=== PATIENT | female | born 1950 | race Caucasian/White ===

== ENCOUNTER 2022-04-13 19:11 | Inpatient (IN) | payer MEDICARE ==
[~2022-04-13] VITALS: Ht 157.5 cm; Wt 51.5 kg
[2022-04-13 19:57] LABS: BASO # 0.1 x10^3/uL (0.0-0.2); BASO % 1 % (0-3); EOS # 0.1 x10^3/uL (0.0-0.7); EOS % 1 % (0-3); HEMATOCRIT 35.8 % (36.0-47.0); HEMOGLOBIN 12.6 g/dL (12.0-15.5); LYMPH % 19 % (24-48); MEAN CORPUSCULAR HEMOGLOBIN 33 pg (25-35); MEAN CORPUSCULAR HGB CONC 35 g/dL (31-37); MEAN CORPUSCULAR VOLUME 95 fL (79-100); MONO # 0.7 x10^3/uL (0.0-1.1); MONO % 14 % (0-9); NEUT # 3.4 x10^3/uL (1.8-7.7); NEUT % 64 % (31-73); PLATELET COUNT 235 x10^3/uL (140-400); RED BLOOD COUNT 3.77 x10^6/uL (3.50-5.40); RED CELL DISTRIBUTION WIDTH 11.9 % (11.5-14.5); WHITE BLOOD COUNT 5.3 x10^3/uL (4.0-11.0)
[2022-04-13 20:05] LABS: AMPHETAMINE/METHAMPHETAMINE NEG (NEG); BARBITURATES NEG (NEG); BENZODIAZEPINES NEG (NEG); CANNABINOIDS NEG (NEG); COCAINE NEG (NEG); METHADONE NEG (NEG); OPIATES NEG (NEG); PHENCYCLIDINE NEG (NEG)
[2022-04-13 20:06] LABS: PROTHROMBIN TIME PATIENT 12.9 SEC (11.7-14.0)
[2022-04-13 20:07] LABS: BACTERIA,URINE 0 /HPF (0-FEW); RBC,URINE 0 /HPF (0-2); WBC,URINE OCC /HPF (0-4)
[2022-04-13 20:16] LABS: CREATININE 0.6 mg/dL (0.6-1.0); GFR 98.8; POTASSIUM 3.6 mmol/L (3.5-5.1)
[2022-04-13 20:17] LABS: INFLUENZA A PATIENT NEGATIVE (NEGATIVE); INFLUENZA B PATIENT NEGATIVE (NEGATIVE)
[2022-04-13 20:22] LABS: MAGNESIUM 1.9 mg/dL (1.8-2.4); TOTAL BILIRUBIN 0.2 mg/dL (0.2-1.0); TOTAL PROTEIN 5.9 g/dL (6.4-8.2)
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
[2022-04-13] MEDS ORDERED: NICOTINE 21MG PATCH. TD STA (21:17)
[2022-04-13] MEDS ORDERED: MULTIVIT INFUSN,ADULT 4,VIT K 10 ML, THIAMINE INJ 100 MG, FOLIC ACID INJ 1 MG in IV NOR... IV ONE (21:39)
[2022-04-13] MEDS ORDERED: ONDANSETRON PF 4 MG/2 ML VIAL. IVP PRN (21:43)
[2022-04-13] MEDS ORDERED: IV NORMAL SALINE 1000ML BAG 1,000 ML IV ONE ×2 (21:43→21:44)
[2022-04-13] MEDS ORDERED: MORPHINE SULFATE 2 MG/ML INJ. IVP PRN (21:44)
[2022-04-13] MEDS ORDERED: ACETAMINOPHEN 325 MG TABLET. PO PRN (21:44)
--- NOTE | 2022-04-13 21:45 | RAD ---
CT HEAD INDICATION: Reason: weakness / Spl. Instructions: / History: COMPARISON: None Available. Exposure: One or more of the following individualized dose reduction techniques were utilized for thi s examination: 1. Automated exposure control 2. Adjustment of the mA and/or kV according to patient size 3. Use of iterative reconstruction technique TECHNIQUE: 5 mm contiguous axial images were obtained from the skull base to the vertex in both bone and soft tissue algorithm. FINDINGS: No abnormal attenuation within the brain parenchyma. No evidence of acute intracranial hemorrhage. No extra-axial fluid collections. No mass effect or midline shift. Ventricular size is appropriate. Basal cisterns are patent. No fractures identified.[place]-white differentiation is preserved.Globes and orbits are within normal l imits. Paranasal sinuses and mastoid air cells are clear. IMPRESSION: No acute intracranial findings. Electronically signed by: Evens Elder MD (04/13/2022 9:43 PM) [id number]
--- NOTE | 2022-04-13 23:32 | RAD ---
XR CHEST 1V 04/13/2022 8:10 PM INDICATION: Shortness of air COMPARISON: None available TECHNIQUE: Portable frontal view of the chest is provided. FINDINGS: The cardiomediastinal silhouette is within normal limits. Patchy opacity identified within the lingul a. There are no significant pleural effusions. There is no pulmonary vascular congestion. No pneumothora x. No suspicious osseous abnormality. IMPRESSION: Patchy opacity within the lingula which may represent pulmonary infiltrate in appropriate setting. Re commend short-term follow-up two-view chest radiograph to ensure resolution. Electronically signed by: Giovana Raman MD (04/13/2022 11:30 PM) KEE
[2022-04-13 23:33] VITALS: BP 146/60
[2022-04-14 03:31] VITALS: BP 149/69
[2022-04-14 03:32] LABS: ALBUMIN 2.9 g/dL (3.4-5.0); CREATININE 0.5 mg/dL (0.6-1.0); TOTAL BILIRUBIN 0.2 mg/dL (0.2-1.0); TOTAL PROTEIN 5.7 g/dL (6.4-8.2)
[2022-04-14 04:31] LABS: BASO % 1 % (0-3); EOS # 0.1 x10^3/uL (0.0-0.7); EOS % 1 % (0-3); HEMATOCRIT 37.7 % (36.0-47.0); LYMPH # 0.9 x10^3/uL (1.0-4.8); LYMPH % 20 % (24-48); MEAN CORPUSCULAR HEMOGLOBIN 33 pg (25-35); MEAN CORPUSCULAR HGB CONC 35 g/dL (31-37); MEAN CORPUSCULAR VOLUME 96 fL (79-100); MONO # 0.7 x10^3/uL (0.0-1.1); MONO % 14 % (0-9); NEUT # 3.1 x10^3/uL (1.8-7.7); NEUT % 64 % (31-73); PLATELET COUNT 239 x10^3/uL (140-400); RED BLOOD COUNT 3.93 x10^6/uL (3.50-5.40); RED CELL DISTRIBUTION WIDTH 11.9 % (11.5-14.5); WHITE BLOOD COUNT 4.8 x10^3/uL (4.0-11.0)
--- NOTE | 2022-04-14 06:36 | EKG ---
[facility] [address] [place] [id number] Test Date: 2022-04-13 Test Time: 19:40:04 Pat Name: ÁLVARO MOELLER Department: Room: 536 1 Gender: F Pricer: MITCHELL : 1950 Requested By: JOSE J GREENE Order Number: [id number] Reading MD: Blue Miramontes Measurements Intervals Swiss Rate: 70 P: 73 WI: 186 QRS: -29 QRSD: 134 T: 110 QT: 432 QTc: 470 Interpretive Statements SINUS RHYTHM LEFTWARD AXIS LEFT BUNDLE BRANCH BLOCK Electronically Signed On 04-15-2022 10:06:27 CDT by Blue Miramontes
[2022-04-14 07:13] VITALS: BP 166/61
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
[2022-04-14] MEDS ORDERED: guaiFENesin DM 200MG/20MG 10 ML SYRUP PO PRN (07:30)
[2022-04-14] MEDS ORDERED: ALBUTEROL SULFATE 2.5 MG/3 ML NEBU. NEB PRN (07:30)
[2022-04-14] MEDS: IPRATRPIUM/ALBUTEROL 0.5/2.5MG 3 ML NEBU. NEB SCH ×4 (08:00→20:47)
[2022-04-14 11:00] VITALS: BP 148/60
[2022-04-14] MEDS: BUDESONIDE 0.5 MG/2 ML NEBU. NEB SCH ×2 (12:00→20:47)
[2022-04-14] MEDS ORDERED: cloNIDine HCL 0.1 MG TABLET PO PRN (12:45)
[2022-04-14] MEDS: GABAPENTIN 300 MG CAPSULE. PO SCH ×2 (14:05→21:10)
[2022-04-14] MEDS: MEMANTINE 5 MG TABLET. PO SCH ×2 (14:06→21:19)
[2022-04-14] MEDS: FAMOTIDINE 20 MG TABLET. PO SCH (14:06)
[2022-04-14 14:55] VITALS: BP 167/67
[2022-04-14 19:00] VITALS: BP 141/55
[2022-04-14 23:00] VITALS: BP 150/57
[2022-04-15 03:00] VITALS: BP 133/58
[2022-04-15 07:00] VITALS: BP 153/74
[2022-04-15] MEDS: IPRATRPIUM/ALBUTEROL 0.5/2.5MG 3 ML NEBU. NEB SCH ×3 (07:13→15:35)
[2022-04-15] MEDS: BUDESONIDE 0.5 MG/2 ML NEBU. NEB SCH (07:13)
--- NOTE | 2022-04-15 07:15 | PDOC ---
[employer] PROGRESS NOTE Date of Service DOS: DATE: 04/15/22 TIME: 07:10 Chief Complaint Chief Complaint Dyspnea -likely mild COPD exacerbation does not have a formal diagnosis of COPD that family knows of but was hospitalized 10 times only to the [facility] she recently moved to [place]. Hyponatremia -nutritional malnourished. She is a "tea and toast" individual Alcohol use disorder -with history of hospitalization for withdrawal seizures. Placed on CIWA protocol current smoker using 1 to 2 packs of cigarettes -patient denied smoking to me counseled on think about why she wants to quit. Family notes she smokes 2 packs/day Mild cognitive impairment - will start low dose memantine Severe protein calorie malnutrition -essentially only drinks Diet Coke protein drinks and alcohol. dietitian counseling Gram positive blood cultures - doxy and rocephin FEN - mechanical soft PPX - lovenox FULL CODE Dispo - inpatient History of Present Illness History of Present Illness Ms Sanford is a 71 year old female w/ PMHx alcohol use disorder current smoker using 1 to 2 packs of cigarettes per day presenting to the ED via EMS on 04/13/22 complaining of progressive weakness and shortness of breath. She noted she drinks 6 beers and was unable to walk very well unable to stand unaided in the ED. Denies any chest pain, denies any abdominal pain, denies any nausea or vomiting. Family supplements history notes that she and her brother were evicted from their homes in the [place] [facility] recently and had to move up to [place]. Her daughter is her financial and medical power of senior trial attorney and she notes that she would like to defer to her daughter for most things though she is oriented to location person and date date month and year WBC 5.3, Hb 12.6, platelets 235, INR 1, PTT 27, NA 126, K3.6, BUN 5, CR 0.6, glucose 76, calcium 8, magnesium 1.9, bilirubin 0.2, AST 17, ALT 23, alkaline phosphatase 73, albumin 3, lipase 153, NT proBNP 44, troponin 11, procalcitonin less than 0.1, lactic acid 1.6, TSH 2.086, urine drug screen positive for ethyl alcohol ethanol level 33 mg/Gordon at 1944, urinalysis bland, rapid COVID-19 and rapid influenza negative. EKG sinus rate of 70 bpm leftward axis QRS wide at 134, QTc 470, no TWI or ST segment elevation. Chest radiograph with patchy opacity left lingula Noncontrast CT head with no acute abnormality. 04/15: Required IV Ativan overnight for elevated CIWA score. Blood cultures resulted positive with gram-positive cocci in clusters this morning we will start empiric Rocephin and doxycycline until antibiotic therapy can be tailored toward results. Was able to work with therapy recommended home health services. Vitals/I&O Vitals/I&O: Vital Signs Date Time Temp Pulse Resp B/P (MAP) Pulse Ox O2 Delivery O2 Flow Rate FiO2 04/15/22 03:00 97.7 81 16 133/58 (83) 95 97.7 04/14/22 20:50 Room Air I & O 04/14/22 04/14/22 04/15/22 15:00 23:00 07:00 Intake Total 480 ml 240 ml Output Total 1400 ml Balance 480 ml 240 ml -1400 ml Physical Exam General: Alert, Oriented X3, Cooperative, mild distress Abdomen: Normal bowel sounds, Soft, No tenderness, No hepatosplenomegaly, No masses Extremities: No clubbing, No cyanosis, No edema, Normal pulses, No tenderness/swelling Skin: No rashes, No breakdown, No significant lesion Assessment and Plan Assessmemt and Plan Problems Medical Problems: (1) Alcoholism Status: Acute (2) Generalized weakness Status: Acute (3) Hyponatremia Status: Acute (4) Shortness of breath Status: Acute (5) Smoking addiction Status: Acute Comment Review of Relevant I have reviewed the following items sara (where applicable) has been applied. Medications: Current Medications Medications (Trade) Dose Ordered Sig/Florencia Route PRN Reason Start Time Stop Time Status Last Admin Dose Admin Albuterol/ Ipratropium (Duoneb) 3 ml RTQID NEB 04/14/22 08:00 04/14/22 20:47 Budesonide (Pulmicort) 0.5 mg RTBID NEB 04/14/22 08:00 04/14/22 20:47 Guaifenesin (Robitussin Dm) 10 ml PRN Q6HRS PRN PO COUGH 04/14/22 07:30 04/14/22 21:09 Olanzapine (ZyPREXA ZYDIS) 5 mg PRN BID PRN PO ANXIETY / AGITATION 04/14/22 07:30 04/14/22 21:10 Gabapentin (Neurontin) 300 mg TID PO 04/14/22 14:00 04/14/22 21:10 Lorazepam (Ativan Inj) 1 mg PRN Q1HR PRN IV For CIWA 8-14 04/14/22 12:45 04/14/22 21:09 Famotidine (Pepcid) 20 mg DAILY PO 04/14/22 13:00 04/14/22 14:06 Memantine (Namenda) 5 mg BID PO 04/14/22 13:00 04/14/22 21:19 Justifications for Admission Other Justification JAIRO LAKE MD April 15, 2022 07:15
[2022-04-15] MEDS ORDERED: cefTRIAXone IV Push 1 GM VIAL. IVP SCH (09:00)
[2022-04-15] MEDS ORDERED: FOLIC ACID 1 MG TABLET. PO SCH (09:00)
[2022-04-15] MEDS ORDERED: DOXYCYCLINE HYCLATE 100 MG in IV DEXTROSE 5% 100ML 100 ML IV SCH (09:00)
[2022-04-15] MEDS ORDERED: MULTIVITAMIN with MINERAL TABLET. PO SCH (09:00)
[2022-04-15] MEDS ORDERED: THIAMINE 100 MG TABLET. PO SCH (09:00)
[2022-04-15 09:05] LABS: CALCIUM 8.4 mg/dL (8.5-10.1); CREATININE 0.5 mg/dL (0.6-1.0); POTASSIUM 3.6 mmol/L (3.5-5.1)
--- NOTE | 2022-04-15 09:41 | PDOC ---
PULMONARY PROGRESS NOTES DATE: 04/15/22 TIME: 09:41 Vitals Vital Signs Date Time Temp Pulse Resp B/P (MAP) Pulse Ox O2 Delivery O2 Flow Rate FiO2 04/15/22 07:14 96 Room Air 04/15/22 07:00 98.2 67 20 153/74 (100) 98.2 Labs Laboratory Tests Test 04/13/22 19:40 04/13/22 19:44 04/14/22 03:00 04/15/22 06:29 Urine Collection Type Unknown Urine Color (Auto) Colorless Urine Turbidity Clear Urine pH (Auto) 5.5 (<5.0-8.0) Urine Specific [place] 1.002 (1.000-1.030) Urine Protein (Auto) Negative mg/dL (Negative) Urine Glucose (Auto)(UA) Negative mg/dL (Negative) Urine Ketones (Auto) Negative mg/dL (Negative) Urine Blood (Auto) Trace (Negative) Urine Nitrite Negative (Negative) Urine Bilirubin (Auto) Negative (Negative) Urine Urobilinogen (Auto) Normal mg/dL (Normal) Urine Leukocyte Esterase (Auto) Negative (Negative) Urine RBC 0 /HPF (0-2) Urine WBC Occ /HPF (0-4) Urine Squamous Epithelial Cells Few /LPF Urine Bacteria 0 /HPF (0-FEW) Urine Opiates Screen Neg (NEG) Urine Methadone Screen Neg (NEG) Urine Barbiturates Neg (NEG) Urine Phencyclidine Screen Neg (NEG) Urine Amphetamine/Methamphetamine Neg (NEG) Urine Benzodiazepines Screen Neg (NEG) Urine Cocaine Screen Neg (NEG) Urine Cannabinoids Screen Neg (NEG) Urine Ethyl Alcohol Pos (NEG) Influenza Type A Antigen Negative (NEGATIVE) Influenza Type B Antigen Negative (NEGATIVE) SARS-CoV-2 Antigen (Rapid) Negative (NEGATIVE) White Blood Count 5.3 x10^3/uL (4.0-11.0) 4.8 x10^3/uL (4.0-11.0) Red Blood Count 3.77 x10^6/uL (3.50-5.40) 3.93 x10^6/uL (3.50-5.40) Hemoglobin 12.6 g/dL (12.0-15.5) 13.0 g/dL (12.0-15.5) Hematocrit 35.8 % (36.0-47.0) 37.7 % (36.0-47.0) Mean Corpuscular Volume 95 fL (79-100) 96 fL (79-100) Mean Corpuscular Hemoglobin 33 pg (25-35) 33 pg (25-35) Mean Corpuscular Hemoglobin Concent 35 g/dL (31-37) 35 g/dL (31-37) Red Cell Distribution Width 11.9 % (11.5-14.5) 11.9 % (11.5-14.5) Platelet Count 235 x10^3/uL (140-400) 239 x10^3/uL (140-400) Neutrophils (%) (Auto) 64 % (31-73) 64 % (31-73) Lymphocytes (%) (Auto) 19 % (24-48) 20 % (24-48) Monocytes (%) (Auto) 14 % (0-9) 14 % (0-9) Eosinophils (%) (Auto) 1 % (0-3) 1 % (0-3) Basophils (%) (Auto) 1 % (0-3) 1 % (0-3) Neutrophils # (Auto) 3.4 x10^3/uL (1.8-7.7) 3.1 x10^3/uL (1.8-7.7) Lymphocytes # (Auto) 1.0 x10^3/uL (1.0-4.8) 0.9 x10^3/uL (1.0-4.8) Monocytes # (Auto) 0.7 x10^3/uL (0.0-1.1) 0.7 x10^3/uL (0.0-1.1) Eosinophils # (Auto) 0.1 x10^3/uL (0.0-0.7) 0.1 x10^3/uL (0.0-0.7) Basophils # (Auto) 0.1 x10^3/uL (0.0-0.2) 0.0 x10^3/uL (0.0-0.2) Prothrombin Time 12.9 SEC (11.7-14.0) Prothromb Time International Ratio 1.0 (0.8-1.1) Activated Partial Thromboplast Time 27 SEC (24-38) Sodium Level 126 mmol/L (136-145) 136 mmol/L (136-145) 140 mmol/L (136-145) Potassium Level 3.6 mmol/L (3.5-5.1) 4.0 mmol/L (3.5-5.1) 3.6 mmol/L (3.5-5.1) Chloride Level 92 mmol/L (98-107) 103 mmol/L (98-107) 105 mmol/L (98-107) Carbon Dioxide Level 28 mmol/L (21-32) 27 mmol/L (21-32) 27 mmol/L (21-32) Anion Gap 6 (6-14) 6 (6-14) 8 (6-14) Blood Urea Nitrogen 5 mg/dL (7-20) 4 mg/dL (7-20) 7 mg/dL (7-20) Creatinine 0.6 mg/dL (0.6-1.0) 0.5 mg/dL (0.6-1.0) 0.5 mg/dL (0.6-1.0) Estimated GFR (Cockcroft-Gault) 98.8 122.0 122.0 BUN/Creatinine Ratio 8 (6-20) 8 (6-20) Glucose Level 76 mg/dL (70-99) 85 mg/dL (70-99) 88 mg/dL (70-99) Lactic Acid Level 1.6 mmol/L (0.4-2.0) Calcium Level 8.0 mg/dL (8.5-10.1) 8.0 mg/dL (8.5-10.1) 8.4 mg/dL (8.5-10.1) Magnesium Level 1.9 mg/dL (1.8-2.4) Total Bilirubin 0.2 mg/dL (0.2-1.0) 0.2 mg/dL (0.2-1.0) Aspartate Amino Transf (AST/SGOT) 17 U/L (15-37) 9 U/L (15-37) Alanine Aminotransferase (ALT/SGPT) 23 U/L (14-59) 19 U/L (14-59) Alkaline Phosphatase 73 U/L (46-116) 70 U/L (46-116) Troponin I High Sensitivity 11 ng/L (4-50) 12 ng/L (4-50) [id number]-H-Type Natriuretic Peptide 484 pg/mL (0-124) Total Protein 5.9 g/dL (6.4-8.2) 5.7 g/dL (6.4-8.2) Albumin 3.0 g/dL (3.4-5.0) 2.9 g/dL (3.4-5.0) Albumin/Globulin Ratio 1.0 (1.0-1.7) 1.0 (1.0-1.7) Lipase 153 U/L (73-393) Procalcitonin < 0.10 ng/mL (0.00-0.10) Thyroid Stimulating Hormone (TSH) 2.086 uIU/mL (0.358-3.74) Ethyl Alcohol Level 33 mg/dL (0-10) Laboratory Tests Test 04/15/22 06:29 Sodium Level 140 mmol/L (136-145) Potassium Level 3.6 mmol/L (3.5-5.1) Chloride Level 105 mmol/L (98-107) Carbon Dioxide Level 27 mmol/L (21-32) Anion Gap 8 (6-14) Blood Urea Nitrogen 7 mg/dL (7-20) Creatinine 0.5 mg/dL (0.6-1.0) Estimated GFR (Cockcroft-Gault) 122.0 Glucose Level 88 mg/dL (70-99) Calcium Level 8.4 mg/dL (8.5-10.1) Impression . Dictated okay to discharge home follow-up in the office Discussed with EMORY Guzman MD April 15, 2022 09:41
[2022-04-15 11:00] VITALS: BP 125/54
[2022-04-15] MEDS: MEMANTINE 5 MG TABLET. PO SCH (11:26)
[2022-04-15] MEDS: FAMOTIDINE 20 MG TABLET. PO SCH (11:27)
[2022-04-15] MEDS: GABAPENTIN 300 MG CAPSULE. PO SCH ×2 (11:27→15:54)
[2022-04-15 15:00] VITALS: BP 127/56
[2022-04-15] MEDS ORDERED: ALBU2.5V8 IH (15:39)
[2022-04-15] MEDS ORDERED: FAMO20TA5 PO (15:39)
[2022-04-15] MEDS ORDERED: DOXY100T PO (15:39)
[2022-04-15] MEDS ORDERED: MEMA5TAB42 PO (15:39)
[2022-04-15] MEDS ORDERED: GABA300C18 PO (15:39)
--- NOTE | 2022-04-15 15:42 | SNU/HH DC ---
DISCHARGE WITH HOME HEALTH DISCHARGE INFORMATION: Discharge Date: April 15, 2022 Final Diagnosis: Problems Medical Problems: (1) Alcoholism Status: Acute (2) Generalized weakness Status: Acute (3) Hyponatremia Status: Acute (4) Shortness of breath Status: Acute (5) Smoking addiction Status: Acute Condition on Discharge: Stable CODE STATUS: Code Status: Full HOME HEALTH: Face to Face: I certify this patient is under my care and that I, or a nurse practitioner or physician's assistant food service director working with me, had a face to face encounter that meets the physician face to face encounter requirements with this patient on 04/15. Detention For: Medication Management, Pain Management RN For Eval/Treatment: Yes Physical Therapy For: Evalulation/Treatment Occupational Therapy For: Evaluation/Treatment Pt Meets Homebound Status: Extreme weakness w/ amb., Poor cognition POST DISCHARGE ORDERS: Activity Instructions for Disc: Activity as tolerated Weight Bearing Status after Di: Full weight bearing DIET AFTER DISCHARGE: Cardiac CHECKS AFTER DISCHARGE: Checks after discharge: Check blood press - daily FOLLOW-UP: Additional Instructions: Jude Walker, and [place] [address], [address] [place] [address] CERTIFICATION STATEMENT: Certification Statement: Certification Statement: Based on the above finding, I certify that this patient is confined to the home and needs intermittent longterm care, physical therapy and/or speech therapy, or continues to need occupational therapy.~ This patient is under my care, and I have initiated the establishment of the plan of care.~ This patient will be followed by myself or a community physician who will periodically review the plan of care. Home Meds Active Scripts Albuterol Sulfate (PROAIR HFA INHALER) 8.5 Gm Hfa.aer.ad, 2 PUFF IH PRN Q4-6HRS PRN for wheezing for 21 Days, #1 INHALER 0 Refills Prov:JAIRO LAKE MD 04/15/22 Doxycycline Hyclate (DOXYCYCLINE HYCLATE) 100 Mg Tablet, 1 TAB PO BID for Bronchitis for 5 Days, #10 TAB Prov:JAIRO LAKE MD 04/15/22 Gabapentin (GABAPENTIN) 300 Mg Capsule, 300 MG PO TID for Alcohol cessation for 30 Days, #90 CAP 5 Refills Prov:JAIRO LAKE MD 04/15/22 Memantine HCl (Memantine HCl) 5 Mg Tablet, 5 MG PO BID for Memory for 30 Days, #60 TAB 5 Refills Prov:JAIRO LAKE MD 04/15/22 Famotidine (FAMOTIDINE) 20 Mg Tablet, 20 MG PO BID for Acid reflux for 30 Days, #60 TAB 5 Refills Prov:JAIRO LAKE MD 04/15/22 JAIRO LAKE MD April 15, 2022 15:42
--- NOTE | 2022-04-15 15:51 | PDOC3 ---
Discharge Summary Visit Information Date of Admission: April 14, 2022 Date of Discharge: April 15, 2022 Admitting Diagnosis: Hyponatremia Final Diagnosis Problems Medical Problems: (1) Alcoholism Status: Acute (2) Generalized weakness Status: Acute (3) Hyponatremia Status: Acute (4) Shortness of breath Status: Acute (5) Smoking addiction Status: Acute Brief Hospital Course Allergies Allergies Coded Allergies Type Severity Reaction Last Updated Verified No Known Drug Allergies 04/13/22 No Vital Signs Vital Signs Date Time Temp Pulse Resp B/P (MAP) Pulse Ox O2 Delivery O2 Flow Rate FiO2 04/15/22 15:36 96 Room Air 04/15/22 11:00 98.2 82 18 125/54 (77) 98.2 Lab Results Laboratory Tests Test 04/13/22 19:40 04/13/22 19:44 04/14/22 03:00 04/15/22 06:29 Urine Collection Type Unknown Urine Color (Auto) Colorless Urine Turbidity Clear Urine pH (Auto) 5.5 (<5.0-8.0) Urine Specific [place] 1.002 (1.000-1.030) Urine Protein (Auto) Negative mg/dL (Negative) Urine Glucose (Auto)(UA) Negative mg/dL (Negative) Urine Ketones (Auto) Negative mg/dL (Negative) Urine Blood (Auto) Trace (Negative) Urine Nitrite Negative (Negative) Urine Bilirubin (Auto) Negative (Negative) Urine Urobilinogen (Auto) Normal mg/dL (Normal) Urine Leukocyte Esterase (Auto) Negative (Negative) Urine RBC 0 /HPF (0-2) Urine WBC Occ /HPF (0-4) Urine Squamous Epithelial Cells Few /LPF Urine Bacteria 0 /HPF (0-FEW) Urine Opiates Screen Neg (NEG) Urine Methadone Screen Neg (NEG) Urine Barbiturates Neg (NEG) Urine Phencyclidine Screen Neg (NEG) Urine Amphetamine/Methamphetamine Neg (NEG) Urine Benzodiazepines Screen Neg (NEG) Urine Cocaine Screen Neg (NEG) Urine Cannabinoids Screen Neg (NEG) Urine Ethyl Alcohol Pos (NEG) Influenza Type A Antigen Negative (NEGATIVE) Influenza Type B Antigen Negative (NEGATIVE) SARS-CoV-2 Antigen (Rapid) Negative (NEGATIVE) White Blood Count 5.3 x10^3/uL (4.0-11.0) 4.8 x10^3/uL (4.0-11.0) Red Blood Count 3.77 x10^6/uL (3.50-5.40) 3.93 x10^6/uL (3.50-5.40) Hemoglobin 12.6 g/dL (12.0-15.5) 13.0 g/dL (12.0-15.5) Hematocrit 35.8 % (36.0-47.0) 37.7 % (36.0-47.0) Mean Corpuscular Volume 95 fL (79-100) 96 fL (79-100) Mean Corpuscular Hemoglobin 33 pg (25-35) 33 pg (25-35) Mean Corpuscular Hemoglobin Concent 35 g/dL (31-37) 35 g/dL (31-37) Red Cell Distribution Width 11.9 % (11.5-14.5) 11.9 % (11.5-14.5) Platelet Count 235 x10^3/uL (140-400) 239 x10^3/uL (140-400) Neutrophils (%) (Auto) 64 % (31-73) 64 % (31-73) Lymphocytes (%) (Auto) 19 % (24-48) 20 % (24-48) Monocytes (%) (Auto) 14 % (0-9) 14 % (0-9) Eosinophils (%) (Auto) 1 % (0-3) 1 % (0-3) Basophils (%) (Auto) 1 % (0-3) 1 % (0-3) Neutrophils # (Auto) 3.4 x10^3/uL (1.8-7.7) 3.1 x10^3/uL (1.8-7.7) Lymphocytes # (Auto) 1.0 x10^3/uL (1.0-4.8) 0.9 x10^3/uL (1.0-4.8) Monocytes # (Auto) 0.7 x10^3/uL (0.0-1.1) 0.7 x10^3/uL (0.0-1.1) Eosinophils # (Auto) 0.1 x10^3/uL (0.0-0.7) 0.1 x10^3/uL (0.0-0.7) Basophils # (Auto) 0.1 x10^3/uL (0.0-0.2) 0.0 x10^3/uL (0.0-0.2) Prothrombin Time 12.9 SEC (11.7-14.0) Prothromb Time International Ratio 1.0 (0.8-1.1) Activated Partial Thromboplast Time 27 SEC (24-38) Sodium Level 126 mmol/L (136-145) 136 mmol/L (136-145) 140 mmol/L (136-145) Potassium Level 3.6 mmol/L (3.5-5.1) 4.0 mmol/L (3.5-5.1) 3.6 mmol/L (3.5-5.1) Chloride Level 92 mmol/L (98-107) 103 mmol/L (98-107) 105 mmol/L (98-107) Carbon Dioxide Level 28 mmol/L (21-32) 27 mmol/L (21-32) 27 mmol/L (21-32) Anion Gap 6 (6-14) 6 (6-14) 8 (6-14) Blood Urea Nitrogen 5 mg/dL (7-20) 4 mg/dL (7-20) 7 mg/dL (7-20) Creatinine 0.6 mg/dL (0.6-1.0) 0.5 mg/dL (0.6-1.0) 0.5 mg/dL (0.6-1.0) Estimated GFR (Cockcroft-Gault) 98.8 122.0 122.0 BUN/Creatinine Ratio 8 (6-20) 8 (6-20) Glucose Level 76 mg/dL (70-99) 85 mg/dL (70-99) 88 mg/dL (70-99) Lactic Acid Level 1.6 mmol/L (0.4-2.0) Calcium Level 8.0 mg/dL (8.5-10.1) 8.0 mg/dL (8.5-10.1) 8.4 mg/dL (8.5-10.1) Magnesium Level 1.9 mg/dL (1.8-2.4) Total Bilirubin 0.2 mg/dL (0.2-1.0) 0.2 mg/dL (0.2-1.0) Aspartate Amino Transf (AST/SGOT) 17 U/L (15-37) 9 U/L (15-37) Alanine Aminotransferase (ALT/SGPT) 23 U/L (14-59) 19 U/L (14-59) Alkaline Phosphatase 73 U/L (46-116) 70 U/L (46-116) Troponin I High Sensitivity 11 ng/L (4-50) 12 ng/L (4-50) UF-Xfn-P-Type Natriuretic Peptide 484 pg/mL (0-124) Total Protein 5.9 g/dL (6.4-8.2) 5.7 g/dL (6.4-8.2) Albumin 3.0 g/dL (3.4-5.0) 2.9 g/dL (3.4-5.0) Albumin/Globulin Ratio 1.0 (1.0-1.7) 1.0 (1.0-1.7) Lipase 153 U/L (73-393) Procalcitonin < 0.10 ng/mL (0.00-0.10) Thyroid Stimulating Hormone (TSH) 2.086 uIU/mL (0.358-3.74) Ethyl Alcohol Level 33 mg/dL (0-10) Vitamin B12 Level 651 pg/mL (247-911) Laboratory Tests Test 04/15/22 06:29 Sodium Level 140 mmol/L (136-145) Potassium Level 3.6 mmol/L (3.5-5.1) Chloride Level 105 mmol/L (98-107) Carbon Dioxide Level 27 mmol/L (21-32) Anion Gap 8 (6-14) Blood Urea Nitrogen 7 mg/dL (7-20) Creatinine 0.5 mg/dL (0.6-1.0) Estimated GFR (Cockcroft-Gault) 122.0 Glucose Level 88 mg/dL (70-99) Calcium Level 8.4 mg/dL (8.5-10.1) Brief Hospital Course Ms Sanford is a 71 year old female w/ PMHx alcohol use disorder current smoker using 1 to 2 packs of cigarettes per day presenting to the ED via EMS on 04/13/22 complaining of progressive weakness and shortness of breath. She noted she drinks 6 beers and was unable to walk very well unable to stand unaided in the ED. Denies any chest pain, denies any abdominal pain, denies any nausea or vomiting. Family supplements history notes that she and her brother were evicted from their homes in the [place] [facility] recently and had to move up to [place]. Her daughter is her financial and medical power of criminal attorney and she notes that she would like to defer to her daughter for most things though she is oriented to location person and date date month and year WBC 5.3, Hb 12.6, platelets 235, INR 1, PTT 27, NA 126, K3.6, BUN 5, CR 0.6, glucose 76, calcium 8, magnesium 1.9, bilirubin 0.2, AST 17, ALT 23, alkaline phosphatase 73, albumin 3, lipase 153, NT proBNP 44, troponin 11, procalcitonin less than 0.1, lactic acid 1.6, TSH 2.086, urine drug screen positive for ethyl alcohol ethanol level 33 mg/Gordon at 1944, urinalysis bland, rapid COVID-19 and rapid influenza negative. EKG sinus rate of 70 bpm leftward axis QRS wide at 134, QTc 470, no TWI or ST segment elevation. Chest radiograph with patchy opacity left lingula Noncontrast CT head with no acute abnormality. 04/15: Required IV Ativan overnight for elevated CIWA score. Blood cultures resulted positive with gram-positive cocci in clusters this morning we will start empiric Rocephin and doxycycline until antibiotic therapy can be tailored toward results. Was able to work with therapy recommended home health services. Discussed with patient daughter and pulmonology bedside with outpatient CT lung cancer screening and spirometry, doxycycline p.o. as needed albuterol inhaler gabapentin and home health services. Her blood cultures almost certainly contaminant given her lack of clinical symptoms Consults: pulmonology Problem list: Dyspnea -likely mild COPD exacerbation does not have a formal diagnosis of COPD that family knows of but was hospitalized 10 times only to the [facility] she recently moved to [place]. Hyponatremia -nutritional malnourished. She is a "tea and toast" individual Alcohol use disorder -with history of hospitalization for withdrawal seizures. Placed on CIWA protocol current smoker using 1 to 2 packs of cigarettes -patient denied smoking to me counseled on think about why she wants to quit. Family notes she smokes 2 packs/day Mild cognitive impairment - will start low dose memantine Severe protein calorie malnutrition -essentially only drinks Diet Coke protein drinks and alcohol. dietitian counseling Gram positive blood cultures - doxy and rocephin. Almost certainly a contaminant Greater than 30 minutes spent on d/c home with home health Discharge Information Condition at Discharge: Improved Follow Up: Weeks Disposition/Orders: D/C to Home w/ HH Scheduled Doxycycline Hyclate (Doxycycline Hyclate) 100 Mg Tablet, 1 TAB PO BID for Bronchitis for 5 Days, #10 Prescribed by: JAIRO LAKE MD on 04/15/22 153 Famotidine (Famotidine) 20 Mg Tablet, 20 MG PO BID for Acid reflux for 30 Days, #60 Ref 5 Prescribed by: JAIRO LAKE MD on 04/15/22 1539 Gabapentin (Gabapentin) 300 Mg Capsule, 300 MG PO TID for Alcohol cessation for 30 Days, #90 Ref 5 Prescribed by: JAIRO LAKE MD on 04/15/221538 Memantine HCl (Memantine HCl) 5 Mg Tablet, 5 MG PO BID for Memory for 30 Days, #60 Ref 5 Prescribed by: JAIRO LAKE MD on 04/15/221538 Scheduled PRN Albuterol Sulfate (Proair Hfa Inhaler) 8.5 Gm Hfa.aer.ad, 2 PUFF IH PRN Q4-6HRS PRN for wheezing for 21 Days, #1 Ref 0 Prescribed by: JAIRO LAKE MD on 04/15/221538 Justicifation of Admission Dx: Justifications for Admission: Justification of Admission Dx: Yes JAIRO LAKE MD April 15, 2022 15:51
--- NOTE | 2022-04-15 16:28 | NUR ---
SS following for discharge planning. SS reviewed pt chart and discussed with pt RN. Pt is currently on room air. COVID19 negative. PT/OT recommended home with home healthcare. Discharge orders received for home with home healthcare. Pt and family reported having no preference of company. Discharge orders and referral sent to [facility], ; fax [phone]. Pt's RN notified.
[2022-04-15] MEDS ORDERED: LACTOBACILLUS RHAMNOSUS GG 1 CAPSULE. PO SCH (21:00)
--- NOTE | 2022-04-16 09:16 | CONS ---
DATE OF CONSULTATION: 04/15/2022 ATTENDING PHYSICIAN: Dusty Mitchell MD REASON FOR CONSULTATION: The patient is seen in pulmonary consultation at the request of Dr. Mitchell for shortness of air, abnormal chest x-ray. HISTORY OF PRESENT ILLNESS: The patient is a 71-year-old that came in for multiple reasons. She was short of air, had a cough, did not feel well. She has a history of tobacco use and alcoholism. She recently moved in with her family. Her and her brother were evicted from the home at [facility]. The patient has a history of depression and anxiety. She was admitted. I was asked to see her in consultation. PAST MEDICAL HISTORY: Remarkable for hypothyroidism, alcoholism, anxiety disorder, depression. PAST SURGICAL HISTORY: No recent major surgeries. FAMILY HISTORY: Alcoholism, depression and hyperlipidemia. CURRENT MEDICATIONS: List was reviewed. REVIEW OF SYSTEMS: As indicated above, otherwise a 10-point system was reviewed and negative. PHYSICAL EXAMINATION: VITAL SIGNS: Stable. O2 saturation was greater than 92%. LUNGS: Anteriorly were clear, posteriorly were clear. CARDIOVASCULAR: Regular rate and rhythm with S1, S2, no S3. ABDOMEN: Soft, nontender, nondistended. EXTREMITIES: No clubbing or cyanosis. No edema. LABORATORY DATA: Reviewed. White count was elevated with normal hemoglobin and hematocrit, normal electrolytes. Ethyl alcohol level was elevated. Chest x-ray reviewed, some linear opacity in the left lower lobe, probably chronic. IMPRESSION: 1. Abnormal x-ray compatible with history of chronic obstructive pulmonary disease and atelectasis. 2. Chronic obstructive pulmonary disease, unknown FEV1. 3. Alcoholism. 4. Mild acute exacerbation of chronic obstructive pulmonary disease. DISCUSSION: The patient does not appear to be in any significant respiratory distress. She was on room air, did not have much of a cough. I discussed the case with thiago Delcid to discharge home on metered-dose inhalers, specifically a long-acting muscarinic agent, along with p.r.n. albuterol. The patient was instructed on the importance of discontinuing tobacco use. She is to follow up with me in the office. We will obtain outpatient pulmonary function testing. RODERICK/FAUSTO DR: Janee TID: [id number]
== END 2022-04-15 16:48 | disposition home health service (06) | DRG 640 ==
LOC: ER 19:11 → 5 NORTH 21:07
PROVIDERS: ADMIT Internal Medicine; ATTEND Internal Medicine
DX: E87.1 Hypo-osmolality and hyponatremia (principal); E43 Unspecified severe protein-calorie malnutrition; J44.1 Chronic obstructive pulmonary disease with (acute) exacerbation; G31.84 Mild cognitive impairment of uncertain or unknown etiology; E03.9 Hypothyroidism, unspecified; F10.20 Alcohol dependence, uncomplicated; F17.210 Nicotine dependence, cigarettes, uncomplicated; Z81.8 Family history of other mental and behavioral disorders; Z82.49 Family history of ischemic heart disease and other diseases of the circulatory system; F32.A Depression, unspecified; F41.9 Anxiety disorder, unspecified; Z20.822 Contact with and (suspected) exposure to COVID-19; Z68.20 Body mass index [BMI] 20.0-20.9, adult
CPT/HCPCS: 36415; 70450; 71045; 80048; 80053; 80307; 81001; 82607; 83605; 83690; 83735; 83880; 84145; 84443; 84484; 85025; 85610; 85730; 87040; 87077; 87428; 93005; 94640; 94760; G0480; J0696; J2060; J3411; J3490; J7030; J7060; 97116-GP; 99285-25; G0378; J7626